=== PATIENT | male | born 2000 | race Caucasian/White ===

== ENCOUNTER 2020-04-23 22:31 | Emergency (ER) | payer BC ==
[~2020-04-23] VITALS: Ht 188 cm; Wt 95.5 kg
[2020-04-23 22:38] VITALS: BP 156/93; TEMP 98.5
[2020-04-23 23:10] LABS: COLLECTION METHOD CLEAN CATCH
[2020-04-23 23:29] LABS: AMORPHOUS CRYSTAL Present /uL; MUCOUS Present /lpf; PH 6 (5-8); SQUAMOUS EPITHELIAL None Seen /hpf; URINE APPEARANCE Cloudy; URINE BACTERIA None Seen /hpf; URINE BILIRUBIN Negative (NEGATIVE); URINE BLOOD Negative (NEGATIVE); URINE COLOR Yellow; URINE GLUCOSE Negative (NEGATIVE); URINE KETONE Negative (NEGATIVE); URINE LEUKOCYTE ESTERASE Negative (NEGATIVE); URINE NITRATE Negative (NEGATIVE); URINE PROTEIN(semi-quant) Negative (NEGATIVE); URINE RBC 0-2 /hpf
[2020-04-24] MEDS ORDERED: MONODOX100 PO (00:10)
[2020-04-24 00:20] VITALS: PULSE 86
== END 2020-04-24 00:20 | disposition home or self-care (01) ==
LOC: COL.ER 22:31
PROVIDERS: Nurse Practitioner Primary Care
DX: N45.1 Epididymitis (principal)
CPT/HCPCS: J0696